=== PATIENT | female | born 1955 | race Caucasian/White ===

== ENCOUNTER 2018-04-08 14:01 | Emergency (ER) | payer OTHER ==
[~2018-04-08] VITALS: Ht 165.1 cm; Wt 65.0 kg
[~2018-04-08 14:01] MED LIST: EMPA1TAB7 PO; HYDR12.5 PO; LEVO75TA7 PO; LISI40TA4 PO; MAGN400C PO; OMEG1CAP13 PO; POTA99TA21 PO; TURM500C4 PO
[2018-04-08 14:13] VITALS: BP 168/78
[2018-04-08 14:43] LABS: BASOPHILS % (AUTO) 0.6 % (0-1); EOSINOPHILS # (AUTO) 0.1 X10'3 (0-0.9); EOSINOPHILS % (AUTO) 6.1 % (0-6); HEMATOCRIT 38.5 % (35.0-45.0); HEMOGLOBIN 12.4 g/dl (12.0-16.0); LYMPHOCYTES # (AUTO) 0.4 X10'3 (1.1-4.8); LYMPHOCYTES % (AUTO) 17.2 % (21-51); MEAN CORPUSCULAR HEMOGLOBIN 27.5 PG (27.0-31.0); MEAN CORPUSCULAR HGB CONC 32.3 g/dL (33.0-36.5); MEAN CORPUSCULAR VOLUME 85.2 FL (78-98); MEAN PLATELET VOLUME 9.5 FL (7.4-10.4); MONOCYTES # (AUTO) 0.3 X10'3 (0-0.9); MONOCYTES % (AUTO) 15.7 % (2-12); NEUTROPHILS # (AUTO) 1.3 X10'3 (1.8-7.7); NEUTROPHILS % (AUTO) 60.4 % (42-75); PLATELET COUNT 76 X10'3 (140-440); RED BLOOD COUNT 4.52 X10'6 (4.20-5.60); WHITE BLOOD COUNT 2.2 X10'3 (4.5-11.0)
[2018-04-08 14:53] LABS: INR 1.2 INR; PARTIAL THROMBOPLASTIN TIME 28 SECONDS (22-32); PROTHROMBIN TIME 11.8 SECONDS (9.0-12.0)
[2018-04-08 14:54] LABS: ALANINE AMINOTRANSFERASE 40 U/L (12-78); ALBUMIN 3.5 G/DL (3.4-5.0); ALBUMIN/GLOBULIN RATIO 0.9 (1.1-1.5); ALKALINE PHOSPHATASE 114 IU/L (46-116); ANION GAP 8 (8-16); ASPARTATE AMINO TRANSFERASE 46 U/L (10-37); BILIRUBIN,TOTAL 0.3 MG/DL (0.1-1.0); BLOOD UREA NITROGEN 26 MG/DL (7-18); CALCIUM 9.3 MG/DL (8.5-10.1); CHLORIDE 98 MMOL/L (99-107); CREATININE 1.24 MG/DL (0.40-0.90); GLUCOSE 168 MG/DL (70-104); POTASSIUM 4.9 MMOL/L (3.5-5.1); SODIUM 133 MMOL/L (135-145); TOTAL CARBON DIOXIDE 27.1 MMOL/L (24-32); TOTAL PROTEIN 7.5 G/DL (6.4-8.2); eGFR 44 ML/MIN
[2018-04-08 16:25] LABS: MAGNESIUM 2.2 MG/DL (1.5-2.4)
[2018-04-08 16:36] LABS: CLARITY,URINE SLIGHTLY CLOUDY (Clear); COLOR,URINE YELLOW (Yellow); GLUCOSE, URINE >=1000 mg/dl (Neg); KETONES,URINE NEGATIVE (Neg); LEUKOCYTE ESTERASE ,URINE NEGATIVE (Neg); NITRITES, URINE NEGATIVE (Neg); OCCULT BLOOD,URINE NEGATIVE (Neg); PH,URINE 5.5 (4.8-8.0); PROTEIN,URINE TRACE mg/dl (Neg); UROBILINOGEN,URINE 0.2 E.U/dL (0.2-1.0)
[2018-04-08 16:56] LABS: UA COLLECTION TYPE CLN CATCH MIDSTREAM
[2018-04-08 16:58] LABS: BACTERIA,URINE NONE SEEN /HPF (Neg); RBC,URINE NONE SEEN /HPF (0-2); SQUAMOUS EPITHELIAL CELL,UR FEW /LPF (FEW); URIC ACID CRYSTALS 3+ /HPF (NEGATIVE); WBC,URINE 0-4 /HPF (0-4)
== END 2018-04-08 17:42 | disposition home or self-care (01) ==
LOC: ER 14:02
DX: I49.8 Other specified cardiac arrhythmias (principal); R07.89 Other chest pain; R53.1 Weakness; E11.9 Type 2 diabetes mellitus without complications; I10 Essential (primary) hypertension; R63.4 Abnormal weight loss; E03.9 Hypothyroidism, unspecified
CPT/HCPCS: 36415; 71045; 80053; 81001; 83735; 84443; 84484; 85025; 85610; 85730; 93005; 99284

== ENCOUNTER 2018-07-21 11:07 | Inpatient (IN) | payer OTHER ==
[2018-07-16 14:13] LABS: BASOPHILS % (AUTO) 0.6 % (0-1); EOSINOPHILS # (AUTO) 0.1 X10'3 (0-0.9); EOSINOPHILS % (AUTO) 3.3 % (0-6); HEMATOCRIT 33.4 % (35.0-45.0); HEMOGLOBIN 11.2 g/dl (12.0-16.0); LYMPHOCYTES # (AUTO) 0.6 X10'3 (1.1-4.8); LYMPHOCYTES % (AUTO) 20.4 % (21-51); MEAN CORPUSCULAR HEMOGLOBIN 27.9 PG (27.0-31.0); MEAN CORPUSCULAR HGB CONC 33.5 g/dL (33.0-36.5); MEAN CORPUSCULAR VOLUME 83.5 FL (78-98); MONOCYTES # (AUTO) 0.3 X10'3 (0-0.9); MONOCYTES % (AUTO) 10.7 % (2-12); PLATELET COUNT 102 X10'3 (140-440); RED CELL DISTRIBUTION WIDTH 15.3 % (11.5-14.5); WHITE BLOOD COUNT 3.1 X10'3 (4.5-11.0)
[2018-07-16 14:16] LABS: ALBUMIN 3.4 G/DL (3.4-5.0); ANION GAP 9 (8-16); BLOOD UREA NITROGEN 20 MG/DL (7-18); BUN/CREATININE RATIO 19.4 (6.6-38.0); CHLORIDE 106 MMOL/L (99-107); CREATININE 1.03 MG/DL (0.40-0.90); GLUCOSE 149 MG/DL (70-104); PARTIAL THROMBOPLASTIN TIME 27 SECONDS (22-32); POTASSIUM 3.8 MMOL/L (3.5-5.1); SODIUM 139 MMOL/L (135-145); TOTAL CARBON DIOXIDE 24.2 MMOL/L (24-32); eGFR 54 ML/MIN
[2018-07-21] VITALS (13 sets, daily range): BP systolic 116–181; BP diastolic 48–85
[~2018-07-21] VITALS: Ht 157.5 cm; Wt 80.9 kg
[2018-07-21] MEDS ORDERED: diphenhydrAMINE 25mg capsule PO PRN (11:45)
[2018-07-21] MEDS ORDERED: LORazepam 0.5 MG tablet PO PRN (11:45)
[2018-07-21] MEDS ORDERED: ATEN25TA PO (12:14)
[2018-07-21] MEDS ORDERED: AZIL80TA PO (12:15)
[2018-07-21] MEDS ORDERED: LYSI500T PO (12:17)
[2018-07-21] MEDS ORDERED: MAGN400C PO (12:20)
[2018-07-21] MEDS ORDERED: POTA99TA21 PO (12:21)
[2018-07-21] MEDS ORDERED: EMPA1TAB11 PO (12:23)
[2018-07-21] MEDS ORDERED: turmeric PO (12:25)
[2018-07-21] MEDS ORDERED: FURO-150 PO (12:26)
[2018-07-21] MEDS ORDERED: PANT40TA4 PO (12:26)
[2018-07-21] MEDS ORDERED: ASPI81TA52 PO (12:28)
[2018-07-21] MEDS ORDERED: OMEG-79 PO (12:31)
[2018-07-21] MEDS ORDERED: LIDOcaine 1% (10mg/ml) 2ml vial ONE (12:55)
[2018-07-21] MEDS: normal saline 1,000 ML IV SCH ×3 (12:57→20:17)
[2018-07-21] MEDS ORDERED: phenylephrine 10mg/ml inj. ONE (16:25)
[2018-07-21] MEDS ORDERED: iohexol 350 MG/ML 50ML vial IV ONE (16:26)
[2018-07-21] MEDS ORDERED: LIDOcaine 1% (10mg/ml)w/preservative injection 20ml MDV ONE (16:26)
[2018-07-21] MEDS ORDERED: iohexol 350 MG/1 ML 200ml bottle ONE (16:26)
[2018-07-21] MEDS ORDERED: DOPamine 400mg/D5W 250ml 250 ML IV ONE (16:26)
[2018-07-21] MEDS ORDERED: atropine 0.1mg/ml 10ml syringe ONE (16:26)
[2018-07-21] MEDS ORDERED: heparin 1,000unit/ml 10ml vial 10 ML ONE (16:26)
[2018-07-21] MEDS ORDERED: clopidogrel 300mg tablet ONE (17:36)
--- NOTE | 2018-07-21 18:05 | NUR ---
Report received from Winch Driver RN. Patient brought to room 316 via gurney. Helped into bed with slide board. R groin site with no notable hematoma. Area of blood on gauze dressing circled to identify any increase in bleeding. All pedal pulses present and CSM intact bilat. Pt denies any pain or needs at this time. Daughter in with pt. VSS. No s/s of distress. Post Op vitals being started and pt placed on bedside monitor.
[2018-07-21] MEDS ORDERED: OXAZEpam 15mg capsule PO PRN (18:30)
[2018-07-21] MEDS ORDERED: normal saline 1000ml 1,000 ML IV SCH (18:30)
[2018-07-21] MEDS ORDERED: HYDROcodone/acetaminophen 10/325mg tab PO PRN (18:30)
[2018-07-21] MEDS ORDERED: HYDROcodone/acetaminophen 5mg/325mg tablet PO PRN (18:30)
[2018-07-21] MEDS ORDERED: hydrALAZINE 20mg/ml inj. IV PRN (18:40)
[2018-07-21] MEDS ORDERED: pseudoephedrine 30mg tablet PO PRN (18:40)
[2018-07-21] MEDS ORDERED: dextrose 50%-water 50ml dispensing syringe IV PRN ×2 (19:20)
[2018-07-21] MEDS ORDERED: dextrose ORAL solution 15 GM/59 ML bottle PO PRN ×2 (19:20)
[2018-07-21] MEDS ORDERED: insulin Lispro (HumaLOG) vial - multi-dose SQ SCH (19:20)
[2018-07-21] MEDS ORDERED: glucagon, human recombinant 1mg kit SUBCUT PRN (19:20)
[2018-07-21] MEDS ORDERED: DOPamine 400MG/D5W 250 ML -PCU ONLY IV SCH (19:30)
[2018-07-21] MEDS ORDERED: DOPamine 400MG/D5W 250 ML -PCU ONLY IV PRN (19:35)
[2018-07-21] MEDS ORDERED: insulin glargine (Lantus) pen - multi-dose SQ SCH (21:00)
[2018-07-21] MEDS ORDERED: losartan 50mg tablet PO SCH (21:00)
[2018-07-22] VITALS: BP 114/46
[2018-07-22] MEDS: normal saline 1,000 ML IV SCH
[2018-07-22 06:00] VITALS: BP 122/61
[2018-07-22 06:20] LABS: CHOL/HDL RATIO 2.9 (0.00-4.99); CHOLESTEROL 138 MG/DL (0-200); HDL CHOLESTEROL 48 MG/DL (35-60); LDL CHOLESTEROL 79 MG/DL (50-100); TRIGLYCERIDES 64 MG/DL (20-135)
--- NOTE | 2018-07-22 06:43 | NUR ---
Patient in room MED 316. I have received report from Soraya BURR and had the opportunity to ask questions and assume patient care.
[2018-07-22] MEDS ORDERED: clopidogrel 75mg tablet PO SCH (08:00)
[2018-07-22] MEDS ORDERED: aspirin 81mg tablet.DR PO SCH (08:00)
[2018-07-22] MEDS ORDERED: OMEGA-3/DHA/EPA/FISH OIL 1 EACH CAPSULE.DR PO SCH (08:00)
[2018-07-22] MEDS ORDERED: levoTHYROXINE 75mcg tablet PO SCH (08:00)
[2018-07-22] MEDS ORDERED: non-formulary drug (Lysine (l-Lysine) 2 TAB) PO SCH (08:00)
[2018-07-22] MEDS ORDERED: pantoprazole 40mg Tablet.DR PO SCH (08:00)
[2018-07-22] MEDS ORDERED: TURMERIC PO SCH (08:00)
[2018-07-22] MEDS ORDERED: magnesium oxide 400mg tablet PO SCH (08:00)
[2018-07-22] MEDS ORDERED: atenolol 25mg tablet PO SCH (08:00)
[2018-07-22 08:12] LABS: HEMOGLOBIN A1C 7.1 % (4.5-6.2)
[2018-07-22] MEDS ORDERED: CLOP75TA35 PO (08:47)
[2018-07-22] MEDS ORDERED: EMPA1TAB11 PO (08:47)
[2018-07-22 11:00] VITALS: BP 136/65
--- NOTE | 2018-07-22 11:10 | NUR ---
Patient was discharged in stable condition by Laureen Cheng. All discharge paperwork and instructions were reviewed with the patient and her daughter, they had no further questions at this time. Her IV was removed with the catheter tip intact, there was minimal bleeding, and clean gauze and tape were applied. Her new prescriptions were called into [facility] on [address]. All belongings left with the patient. Patient was escorted out of the hospital via wheelchair where she got into her daughters private vehicle.
[2018-07-23] MEDS ORDERED: furosemide 20MG tablet PO SCH (08:00)
[2018-07-24] MEDS ORDERED: METFORMIN HCL PO SCH (08:00)
[2018-07-24] MEDS ORDERED: EMPAGLIFLOZIN PO SCH (08:00)
== END 2018-07-22 11:15 | disposition home or self-care (01) | DRG 39 ==
LOC: SSTAY O 11:07 → CMPBEDREQ 19:48 → MED 3N 20:13
PROVIDERS: ADMIT Internal Medicine Interventional Cardiology; ATTEND Internal Medicine Interventional Cardiology
PROC: 037L3ZZ Dilation of Left Internal Carotid Artery, Percutaneous Approach (ICD-10-PCS; principal; 2018-07-21)
PROC: B41F1ZZ Fluoroscopy of Right Lower Extremity Arteries using Low Osmolar Contrast (ICD-10-PCS; 2018-07-21)
PROC: B41F1ZZ Fluoroscopy of Right Lower Extremity Arteries using Low Osmolar Contrast (ICD-10-PCS; 2018-07-21)
PROC: 4A023N7 Measurement of Cardiac Sampling and Pressure, Left Heart, Percutaneous Approach (ICD-10-PCS; 2018-07-21)
PROC: B2111ZZ Fluoroscopy of Multiple Coronary Arteries using Low Osmolar Contrast (ICD-10-PCS; 2018-07-21)
PROC: B3111ZZ Fluoroscopy of Right Brachiocephalic-Subclavian Artery using Low Osmolar Contrast (ICD-10-PCS; 2018-07-21)
PROC: B31N1ZZ Fluoroscopy of Other Upper Arteries using Low Osmolar Contrast (ICD-10-PCS; 2018-07-21)
PROC: B3121ZZ Fluoroscopy of Left Subclavian Artery using Low Osmolar Contrast (ICD-10-PCS; 2018-07-21)
PROC: B3101ZZ Fluoroscopy of Thoracic Aorta using Low Osmolar Contrast (ICD-10-PCS; 2018-07-21)
PROC: B3141ZZ Fluoroscopy of Left Common Carotid Artery using Low Osmolar Contrast (ICD-10-PCS; 2018-07-21)
PROC: B3171ZZ Fluoroscopy of Left Internal Carotid Artery using Low Osmolar Contrast (ICD-10-PCS; 2018-07-21)
PROC: B31B1ZZ Fluoroscopy of Left External Carotid Artery using Low Osmolar Contrast (ICD-10-PCS; 2018-07-21)
DX: I65.22 Occlusion and stenosis of left carotid artery (principal); E03.9 Hypothyroidism, unspecified; I10 Essential (primary) hypertension; I25.10 Atherosclerotic heart disease of native coronary artery without angina pectoris; E66.01 Morbid (severe) obesity due to excess calories; I25.5 Ischemic cardiomyopathy; I35.0 Nonrheumatic aortic (valve) stenosis; E78.5 Hyperlipidemia, unspecified; E11.51 Type 2 diabetes mellitus with diabetic peripheral angiopathy without gangrene; K74.60 Unspecified cirrhosis of liver; Z86.73 Personal history of transient ischemic attack (TIA), and cerebral infarction without residual deficits; I25.2 Old myocardial infarction; Z87.891 Personal history of nicotine dependence; Z68.32 Body mass index [BMI] 32.0-32.9, adult; Z79.899 Other long term (current) drug therapy; Z79.890 Hormone replacement therapy; Z79.82 Long term (current) use of aspirin
CPT/HCPCS: 36415; 37215; 80048; 80061; 82948; 83036; 84443; 85025; 85610; 85730; 93005; 93455; A4620; A6257; C1725; C1760; C1769; C1876; C1884; C1887; C1894; G0378; J0360; J0461; J1265; J1644; J1815; J2001; J2370; J3490; J7030; Q0163; Q9967